=== PATIENT | female | born 1960 | race African-American/Black ===

== ENCOUNTER 2016-08-09 21:52 | Emergency (ER) | payer OTHER ==
[~2016-08-09] VITALS: Ht 165.1 cm; Wt 85.0 kg
[~2016-08-09 21:52] MED LIST: AZIT250T3 PO; CYCL-36 PO
[2016-08-09 21:54] VITALS: BP 160/88; PULSE 80; RESP 14; TEMP 97.8; O2SAT 100
[2016-08-09 22:57] VITALS: BP 178/103; PULSE 84; RESP 16; O2SAT 100
[2016-08-09] MEDS ORDERED: SODIUM CHLORID 0.9% 500 ML INJ 500 ML IV ONE (23:30)
[2016-08-09] MEDS ORDERED: DEXAMETHASONE SOD PHOS 4 MG/ML VIAL IV PUSH ONE (23:30)
[2016-08-09] MEDS ORDERED: ASPIRIN 81 MG CHEW TAB PO ONE (23:30)
[2016-08-09] MEDS ORDERED: SODIUM CHLORIDE 0.9% FLUSH 5 ML FLUSH IVF PRN (23:30)
--- NOTE | 2016-08-09 23:32 | PD ---
HPI Chief Complaint: Numbness/Tingling Time Seen by Provider: 22:47 Travel History International Travel<30 days: No Contact w/Intl Traveler<30days: No Traveled to known affect area: No History of Present Illness HPI The patient is a 55-year-old Amisha female who presents to the emergency department for left arm and hand tingling. The patient states she developed tingling and numbness to the fourth and fifth digit of the left hand on Friday. The patient states that initially it felt numb, she now has tingling without any actual pain. She also notes numbness to the volar aspect of the left hand on the ulnar aspect. The patient then developed chest pain last night which was substernal, sharp, and intermittent. She denies any shortness of breath, nausea, or vomiting with her chest pain. The patient denies any injury to the left upper extremity. The patient does have a history of diabetes, hypertension, and hyperlipidemia, but is been noncompliant on her medications. The patient did have a stress test 2015, nuclear medicine myocardial perfusion scan, that was unremarkable. The patient is right-hand dominant. PFSH Past Medical History Arthritis: No Asthma: No Autoimmune Disease: No Blood Disorders: No Anxiety: No Depression: No Heart Rhythm Problems: No Cancer: No Cardiac Catheterization: No Cardiovascular Problems: Yes (Chest Pain) High Cholesterol: Yes Chemotherapy: No Chest Pain: Yes Congestive Heart Failure: No COPD: No Cerebrovascular Accident: No Diabetes: Yes Patient Takes Glucophage: Yes Diminished Hearing: No Gastrointestinal Disorders: No GERD: No Glaucoma: No Headaches: No Hepatitis: No Hiatal Hernia: No Hypertension: No Kidney Stones: No Musculoskeletal: Yes (R KNEE ARTHRITIS) Neurologic: No Psychiatric: No Respiratory: No Immunizations Current: Yes Myocardial Infarction: No Radiation Therapy: No Renal Failure: No Seizures: No Sleep Apnea: No Thyroid Disease: No Ulcer: No Tetanus Vaccination: > 5 Years Influenza Vaccination: No PNEUMOCCOCAL Vaccine (Year): 2 ?: Not Menopausal: Yes : 4 Para: 4 Tubal Ligation: Yes (1999) Past Surgical History Abdominal Surgery: Yes AICD: No Cardiac Surgery: No Coronary Artery Bypass Graft: No Ear Surgery: No Endocrine Surgery: No Eye Surgery: No Genitourinary Surgery: No Gynecologic Surgery: Yes Hysterectomy: Yes (Partial MAY 2000) Oral Surgery: Yes Pacemaker: No Thoracic Surgery: No Other Surgery: Yes (BROKEN JAW REPAIRED 1982) Social History Alcohol Use: Yes (SOCIAL) Tobacco Use: No Substance Use: No Allergies-Medications (Allergen,Severity, Reaction): Coded Allergies: Percocet (Verified Allergy, Severe, N/V, 08/09/16) Reported Meds & Prescriptions Reported Meds & Active Scripts Active Reported Metformin (Metformin HCl) 500 Mg Tab 500 Mg PO BIDPC With meals Review of Systems Except as stated in HPI: all other systems reviewed are Neg HENT: No: Lightheadedness Cardiovascular: Positive: Chest Pain or Discomfort, No: Dyspnea on exertion Respiratory: No: Shortness of Breath Gastrointestinal: No: Nausea, Vomiting, Abdominal Pain Neurologic: Positive: Paresthesia, Sensory Disturbance Physical Exam Narrative GENERAL: Awake, alert, pleasant 55-year-old female who appears her stated age and is in no acute respiratory distress. SKIN: Warm and dry. HEAD: Atraumatic. Normocephalic. EYES: No injection or drainage. ENT: No nasal bleeding or discharge. Mucous membranes pink and moist. NECK: Trachea midline. No JVD. CARDIOVASCULAR: Regular rate and rhythm. No murmur appreciated. Palpation the chest wall does not reproduce symptoms. RESPIRATORY: No accessory muscle use. Clear to auscultation. Breath sounds equal bilaterally. GASTROINTESTINAL: Abdomen soft, non-tender, nondistended. No rebound tenderness.. MUSCULOSKELETAL: No obvious deformities. No clubbing. No cyanosis. No edema. Intrinsic hand muscles of the left hand are intact. Patient is able to abduct, adduct, flex, and extend all 5 digits. Patient is able to oppose the thumb to the fifth digit without difficulty. Positive left radial pulse. Patient is able fully flex and extend the left wrist as well as supinate and pronate the left forearm. The patient is able fully flex and extend the left elbow. NEUROLOGICAL: Awake and alert. No obvious cranial nerve deficits. Motor grossly within normal limits. Normal speech. Sensation was slightly diminished over the volar aspect of the fourth and fifth digit, normal on the radial aspect of the third digit. Slightly diminished over the volar aspect, ulnar aspect, the left hand. Normal over the mid to proximal left forearm. PSYCHIATRIC: Appropriate mood and affect; insight and judgment normal. Data Data Last Documented VS Vital Signs Date Time Temp Pulse Resp B/P Pulse Ox O2 Delivery O2 Flow Rate FiO2 08/10/16 04:45 73 18 139/70 98 08/10/16 03:29 Room Air 08/09/16 21:54 97.8 Orders Ckmb (Isoenzyme) Profile (08/09/16 23:18) Complete Blood Count With Diff (08/09/16 23:18) Comprehensive Metabolic Panel (08/09/16 23:18) Magnesium (Mg) (08/09/16 23:18) Troponin I (08/09/16 23:18) Ecg Monitoring (08/09/16 23:18) Iv Access Insert/Monitor (08/09/16 23:18) Oximetry (08/09/16 23:18) Oxygen Administration (08/09/16 23:18) Aspirin Chew (Aspirin Chew) (08/09/16 23:30) Sodium Chloride 0.9% Flush (Ns Flush) (08/09/16 23:30) Sodium Chlorid 0.9% 500 Ml Inj (Ns 500 M (08/09/16 23:30) Dexamethasone Inj (Decadron Inj) (08/09/16 23:30) Diphenhydramine Inj (Benadryl Inj) (08/10/16 00:00) Diphenhydramine Inj (Benadryl Inj) (08/10/16 00:01) Troponin I (08/10/16 02:44) CKMB (08/09/16 23:44) CKMB% (08/09/16 23:44) Electrocardiogram (08/09/16 22:53) Labs Laboratory Tests Test 08/09/16 08/10/16 23:44 03:25 White Blood Count 7.6 TH/MM3 Red Blood Count 4.56 MIL/MM3 Hemoglobin 13.7 GM/DL Hematocrit 41.0 % Mean Corpuscular Volume 90.0 FL Mean Corpuscular Hemoglobin 29.9 PG Mean Corpuscular Hemoglobin 33.3 % Concent Red Cell Distribution Width 13.3 % Platelet Count 249 TH/MM3 Mean Platelet Volume 10.5 FL Neutrophils (%) (Auto) 54.3 % Lymphocytes (%) (Auto) 34.1 % Monocytes (%) (Auto) 7.6 % Eosinophils (%) (Auto) 3.2 % Basophils (%) (Auto) 0.8 % Neutrophils # (Auto) 4.1 TH/MM3 Lymphocytes # (Auto) 2.6 TH/MM3 Monocytes # (Auto) 0.6 TH/MM3 Eosinophils # (Auto) 0.2 TH/MM3 Basophils # (Auto) 0.1 TH/MM3 CBC Comment DIFF FINAL Differential Comment Sodium Level 141 MEQ/L Potassium Level 3.6 MEQ/L Chloride Level 109 MEQ/L Carbon Dioxide Level 27.5 MEQ/L Anion Gap 5 MEQ/L Blood Urea Nitrogen 7 MG/DL Creatinine 0.76 MG/DL Estimat Glomerular Filtration 96 ML/MIN Rate Random Glucose 111 MG/DL Calcium Level 10.8 MG/DL Magnesium Level 2.4 MG/DL Total Bilirubin 0.5 MG/DL Aspartate Amino Transf 20 U/L (AST/SGOT) Alanine Aminotransferase 31 U/L (ALT/SGPT) Alkaline Phosphatase 138 U/L Total Creatine Kinase 229 U/L Creatine Kinase MB 1.3 NG/ML Creatine Kinase MB % 0.6 % Troponin I LESS THAN 0.02 LESS THAN 0.02 NG/ML NG/ML Total Protein 8.1 GM/DL Albumin 4.2 GM/DL MDM Medical Decision Making Medical Screen Exam Complete: Yes Emergency Medical Condition: Yes Medical Record Reviewed: Yes Interpretation(s) EKG reveals sinus rhythm with sinus arrhythmia. Inverted T waves noted in lead 1, 2, V3, V4, V5, V6. No significant changes since July 28, 2015. Differential Diagnosis Diagnosis includes acute coronary syndrome, ulnar radiculopathy, ulnar neuropathy, ulnar compartment syndrome, cervical radiculopathy, neuralgia. Narrative Course IV was established, labs are drawn and sent, and the patient was placed on cardiac telemetry monitoring and continuous pulse oximetry monitoring. EKG was ordered and interpreted. EKG does reveal inverted T waves in lead 1, 2, V3 through V6, however, there is no cystic changes when compared to previous EKG. The patient also had a normal nuclear medicine Robinson Lino perfusion scan performed on December 04, 2014. However, patient does have multiple risk factors and is not compliant, therefore, 2 sets of cardiac enzymes are ordered. Patient was administered aspirin and Decadron, I believe the patient has an ulnar neuropathy and may benefit from outpatient follow-up with neurology/ orthopedics. Therefore, the patient will have to sets of cardiac enzymes, negative, patient will be discharged home. The patient was signed out to Dr. Felton at 1 AM with second troponin pending. The patient received Decadron, immediately felt like there were ants biting her, therefore, was administered Benadryl 25 mg intravenously. Diagnosis Primary Impression: Ulnar neuropathy Qualified Code: G56.22 - Ulnar neuropathy of left upper extremity Additional Impression: Atypical chest pain Patient Instructions: General Instructions Condition: Stable David Coronado MD Aug 09, 2016 23:32
[2016-08-10] MEDS ORDERED: diphenhydrAMINE HCL 50 MG/ML VIAL IV PUSH ONE
[2016-08-10] MEDS ORDERED: diphenhydrAMINE HCL 50 MG/ML VIAL ONE (00:01)
[2016-08-10 00:18] LABS: AUTOMATED NEUTROPHIL # 4.1 TH/MM3 (1.8-7.7); BASOPHIL # 0.1 TH/MM3 (0-0.2); BASOPHIL % 0.8 % (0.0-2.0); EOSINOPHIL # 0.2 TH/MM3 (0-0.4); EOSINOPHIL % 3.2 % (0.0-4.0); HEMO FLAGS DIFF FINAL; LYMPH % 34.1 % (9.0-44.0); LYMPHOCYTE # 2.6 TH/MM3 (1.0-4.8); MEAN CORPUSCULAR HEMOGLOBIN 29.9 PG (27.0-34.0); MEAN CORPUSCULAR HGB CONC 33.3 % (32.0-36.0); MONO % 7.6 % (0.0-8.0); NEUT % 54.3 % (16.0-70.0); PLATELET COUNT 249 TH/MM3 (150-450); RED BLOOD COUNT 4.56 MIL/MM3 (4.00-5.30); RED CELL DISTRIBUTION WIDTH 13.3 % (11.6-17.2); WHITE BLOOD COUNT 7.6 TH/MM3 (4.0-11.0)
[2016-08-10 00:27] VITALS: BP 156/78; PULSE 84; RESP 16; O2SAT 98
[2016-08-10 00:41] LABS: ALKALINE PHOSPHATASE 138 U/L (45-117); ALT (GPT) 31 U/L (10-53); ANION GAP 5 MEQ/L (5-15); AST (GOT) 20 U/L (15-37); BICARBONATE 27.5 MEQ/L (21.0-32.0); BLOOD UREA NITROGEN 7 MG/DL (7-18); CHLORIDE 109 MEQ/L (98-107); CREATINE KINASE 229 U/L (26-192); GLOMERULAR FILTRATION RATE 96 ML/MIN (>89); MAGNESIUM 2.4 MG/DL (1.5-2.5); SODIUM (NA) 141 MEQ/L (136-145); TOTAL BILIRUBIN ADULT 0.5 MG/DL (0.2-1.0)
[2016-08-10 00:47] LABS: POTASSIUM 3.6 MEQ/L (3.5-5.1)
[2016-08-10] MEDS ORDERED: METF500T PO (00:48)
[2016-08-10 01:00] LABS: CKMB 1.3 NG/ML (0.5-3.6)
[2016-08-10 03:29] VITALS: BP 143/86; PULSE 62; RESP 18; O2SAT 96
--- NOTE | 2016-08-10 04:44 | PD ---
Physical Exam Date Seen by Provider: Aug 10, 2016 Narrative Care was assumed from Dr. Coronado at 0100 pending a second troponin. The patient presented with symptoms compatible with an ulnar radiculopathy. However , she has cardiac risk factors and did complain with an episode of chest pain. Data Data Last Documented VS Vital Signs Date Time Temp Pulse Resp B/P Pulse Ox O2 Delivery O2 Flow Rate FiO2 08/10/16 03:29 62 18 143/86 96 Room Air 08/09/16 21:54 97.8 Orders Ckmb (Isoenzyme) Profile (08/09/16 23:18) Complete Blood Count With Diff (08/09/16 23:18) Comprehensive Metabolic Panel (08/09/16 23:18) Magnesium (Mg) (08/09/16 23:18) Troponin I (08/09/16 23:18) Ecg Monitoring (08/09/16 23:18) Iv Access Insert/Monitor (08/09/16 23:18) Oximetry (08/09/16 23:18) Oxygen Administration (08/09/16 23:18) Aspirin Chew (Aspirin Chew) (08/09/16 23:30) Sodium Chloride 0.9% Flush (Ns Flush) (08/09/16 23:30) Sodium Chlorid 0.9% 500 Ml Inj (Ns 500 M (08/09/16 23:30) Dexamethasone Inj (Decadron Inj) (08/09/16 23:30) Diphenhydramine Inj (Benadryl Inj) (08/10/16 00:00) Diphenhydramine Inj (Benadryl Inj) (08/10/16 00:01) Troponin I (08/10/16 02:44) CKMB (08/09/16 23:44) CKMB% (08/09/16 23:44) Labs Laboratory Tests Test 08/09/16 08/10/16 23:44 03:25 White Blood Count 7.6 TH/MM3 Red Blood Count 4.56 MIL/MM3 Hemoglobin 13.7 GM/DL Hematocrit 41.0 % Mean Corpuscular Volume 90.0 FL Mean Corpuscular Hemoglobin 29.9 PG Mean Corpuscular Hemoglobin 33.3 % Concent Red Cell Distribution Width 13.3 % Platelet Count 249 TH/MM3 Mean Platelet Volume 10.5 FL Neutrophils (%) (Auto) 54.3 % Lymphocytes (%) (Auto) 34.1 % Monocytes (%) (Auto) 7.6 % Eosinophils (%) (Auto) 3.2 % Basophils (%) (Auto) 0.8 % Neutrophils # (Auto) 4.1 TH/MM3 Lymphocytes # (Auto) 2.6 TH/MM3 Monocytes # (Auto) 0.6 TH/MM3 Eosinophils # (Auto) 0.2 TH/MM3 Basophils # (Auto) 0.1 TH/MM3 CBC Comment DIFF FINAL Differential Comment Sodium Level 141 MEQ/L Potassium Level 3.6 MEQ/L Chloride Level 109 MEQ/L Carbon Dioxide Level 27.5 MEQ/L Anion Gap 5 MEQ/L Blood Urea Nitrogen 7 MG/DL Creatinine 0.76 MG/DL Estimat Glomerular Filtration 96 ML/MIN Rate Random Glucose 111 MG/DL Calcium Level 10.8 MG/DL Magnesium Level 2.4 MG/DL Total Bilirubin 0.5 MG/DL Aspartate Amino Transf 20 U/L (AST/SGOT) Alanine Aminotransferase 31 U/L (ALT/SGPT) Alkaline Phosphatase 138 U/L Total Creatine Kinase 229 U/L Creatine Kinase MB 1.3 NG/ML Creatine Kinase MB % 0.6 % Troponin I LESS THAN 0.02 LESS THAN 0.02 NG/ML NG/ML Total Protein 8.1 GM/DL Albumin 4.2 GM/DL [facility] Supervised Visit with ARCELIA: No Narrative Course Laboratory Tests Test 08/09/16 08/10/16 23:44 03:25 White Blood Count 7.6 TH/MM3 Red Blood Count 4.56 MIL/MM3 Hemoglobin 13.7 GM/DL Hematocrit 41.0 % Mean Corpuscular Volume 90.0 FL Mean Corpuscular Hemoglobin 29.9 PG Mean Corpuscular Hemoglobin 33.3 % Concent Red Cell Distribution Width 13.3 % Platelet Count 249 TH/MM3 Mean Platelet Volume 10.5 FL Neutrophils (%) (Auto) 54.3 % Lymphocytes (%) (Auto) 34.1 % Monocytes (%) (Auto) 7.6 % Eosinophils (%) (Auto) 3.2 % Basophils (%) (Auto) 0.8 % Neutrophils # (Auto) 4.1 TH/MM3 Lymphocytes # (Auto) 2.6 TH/MM3 Monocytes # (Auto) 0.6 TH/MM3 Eosinophils # (Auto) 0.2 TH/MM3 Basophils # (Auto) 0.1 TH/MM3 CBC Comment DIFF FINAL Differential Comment Sodium Level 141 MEQ/L Potassium Level 3.6 MEQ/L Chloride Level 109 MEQ/L Carbon Dioxide Level 27.5 MEQ/L Anion Gap 5 MEQ/L Blood Urea Nitrogen 7 MG/DL Creatinine 0.76 MG/DL Estimat Glomerular Filtration 96 ML/MIN Rate Random Glucose 111 MG/DL Calcium Level 10.8 MG/DL Magnesium Level 2.4 MG/DL Total Bilirubin 0.5 MG/DL Aspartate Amino Transf 20 U/L (AST/SGOT) Alanine Aminotransferase 31 U/L (ALT/SGPT) Alkaline Phosphatase 138 U/L Total Creatine Kinase 229 U/L Creatine Kinase MB 1.3 NG/ML Creatine Kinase MB % 0.6 % Troponin I LESS THAN 0.02 LESS THAN 0.02 NG/ML NG/ML Total Protein 8.1 GM/DL Albumin 4.2 GM/DL The patient has been resting comfortably pending her second troponin. Diagnosis Primary Impression: Ulnar neuropathy Qualified Code: G56.22 - Ulnar neuropathy of left upper extremity Additional Impression: Atypical chest pain Patient Instructions: General Instructions Disposition: DISCHARGE HOME Condition: Stable Nena Felton MD Aug 10, 2016 04:44
[2016-08-10 04:45] VITALS: BP 139/70; PULSE 73; RESP 18; O2SAT 98
--- NOTE | 2016-08-10 17:03 | EKG ---
Date Performed: 08/09/2016 Time Performed: 22:53:46 PTAGE: 55 years EKG: SINUS ARRHYTHMIA DIFFUSE NONSPECIFIC T WAVE CHANGE Compared to prior tracing no significant change ABNORMAL ECG PREVIOUS TRACING : 03/15/2016 07.55 DOCTOR: Rios Sanchez Interpretating Date/Time 08/10/2016 17:01:55
== END 2016-08-10 05:40 | disposition home or self-care (01) ==
LOC: NEPA 21:52 → NEPC 08-10 05:40
DX: G56.22 Lesion of ulnar nerve, left upper limb (principal); R07.89 Other chest pain; R94.31 Abnormal electrocardiogram [ECG] [EKG]; I10 Essential (primary) hypertension; E11.9 Type 2 diabetes mellitus without complications; Z91.14 Patient's other noncompliance with medication regimen; Z79.84 Long term (current) use of oral hypoglycemic drugs
CPT/HCPCS: 80053; 82550; 82552; 83735; 84484; 85025; 93005; 96361; 96374; 96375; 99284; J1100; J1200; J7040

== ENCOUNTER 2016-09-23 05:14 | Emergency (ER) | payer OTHER ==
[~2016-09-23] VITALS: Ht 172.7 cm; Wt 85.0 kg
[~2016-09-23 05:14] MED LIST changes: -AZIT250T3 PO; -CYCL-36 PO; +METF500T PO
[2016-09-23 05:16] VITALS: BP 153/83; PULSE 72; RESP 16; TEMP 97.6; O2SAT 100
[2016-09-23] MEDS ORDERED: DICL75TA PO (05:34)
[2016-09-23] MEDS ORDERED: CYCL1TAB29 PO (05:34)
--- NOTE | 2016-09-23 05:37 | PD ---
HPI Chief Complaint: Back/ Neck Pain or Injury Time Seen by Provider: 05:34 Travel History International Travel<30 days: No Contact w/Intl Traveler<30days: No Traveled to known affect area: No History of Present Illness HPI 56-year-old black female presents emergency Department with a 2 day history of lower back pain. She does not recall any trauma or injury. She states the pain is moderate. Worse with bending and movement. Some relief with sitting still. She denies any fever chills. No nausea vomiting. No numbness, focal weakness. No dysuria or frequency. No vaginal discharge. Patient states that she's had a history of back pain years ago. 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 PFSH Past Medical History Arthritis: No Asthma: No Autoimmune Disease: No Blood Disorders: No Anxiety: No Depression: No Heart Rhythm Problems: No Cancer: No Cardiac Catheterization: No Cardiovascular Problems: Yes (Chest Pain) High Cholesterol: Yes Chemotherapy: No Chest Pain: Yes Congestive Heart Failure: No COPD: No Cerebrovascular Accident: No Diabetes: Yes Diminished Hearing: No Gastrointestinal Disorders: No GERD: No Glaucoma: No Headaches: No Hepatitis: No Hiatal Hernia: No Hypertension: No Kidney Stones: No Musculoskeletal: Yes (R KNEE ARTHRITIS) Neurologic: No Psychiatric: No Respiratory: No Immunizations Current: Yes Myocardial Infarction: No Radiation Therapy: No Renal Failure: No Seizures: No Sleep Apnea: No Thyroid Disease: No Ulcer: No PNEUMOCCOCAL Vaccine (Year): 2 Menopausal: Yes : 4 Para: 4 Tubal Ligation: Yes (1999) Past Surgical History Abdominal Surgery: Yes AICD: No Cardiac Surgery: No Coronary Artery Bypass Graft: No Ear Surgery: No Endocrine Surgery: No Eye Surgery: No Genitourinary Surgery: No Gynecologic Surgery: Yes Hysterectomy: Yes (Partial MAY 2000) Oral Surgery: Yes Pacemaker: No Thoracic Surgery: No Other Surgery: Yes (BROKEN JAW REPAIRED 1982) Social History Alcohol Use: Yes (SOCIAL) Tobacco Use: No Substance Use: No Allergies-Medications (Allergen,Severity, Reaction): Coded Allergies: Percocet (Verified Allergy, Severe, N/V, 09/23/16) Reported Meds & Prescriptions Reported Meds & Active Scripts Active Reported Metformin (Metformin HCl) 500 Mg Tab 500 Mg PO BIDPC With meals Review of Systems Except as stated in HPI: all other systems reviewed are Neg Physical Exam Narrative GENERAL: Well-developed, well-nourished in no acute distress. Nontoxic appearing. HEAD: Normocephalic, atraumatic. EYES: Pupils equal round and reactive. Extraocular motions intact. No scleral icterus. No injection or drainage. ENT: TMs clear without erythema. The external auditory canals clear. Nose: clear . Posterior pharynx is pink and moist. No tonsillar edema or exudate. Uvula midline. Airway patent. NECK: Trachea midline.Supple, nontender, moves head freely. No central bony tenderness or spasm. CARDIOVASCULAR: Regular rate and rhythm without murmurs, gallops, or rubs. RESPIRATORY: Clear to auscultation. Breath sounds equal bilaterally. No wheezes , rales, or rhonchi. GASTROINTESTINAL: Abdomen soft, non-tender, nondistended. No hepato-splenomegaly , or palpable masses. No guarding. EXTREMITIES: No clubbing, cyanosis, or edema. No joint tenderness, effusion, or edema noted. BACK: No central bony tenderness to palpation of dorsal lumbar spine. Without deformity or crepitance. No flank tenderness. Patient has lower paralumbar tenderness. She is able bend forward at 90. Able to heel and toe stand. No saddle anesthesia. She has good distal pulses. Deep tendon reflexes are 3+ bilaterally Data Data Last Documented VS Vital Signs Date Time Temp Pulse Resp B/P Pulse Ox O2 Delivery O2 Flow Rate FiO2 09/23/16 05:16 97.6 72 16 153/83 100 Orders Naproxen (Naprosyn) (09/23/16 05:45) Cyclobenzaprine (Flexeril) (09/23/16 05:45) MDM Medical Decision Making Medical Screen Exam Complete: Yes Emergency Medical Condition: Yes Medical Record Reviewed: Yes Differential Diagnosis MDM: High Differential diagnoses: AAA,Fracture, sprain, strain, HNP, nerve or vascular injury, epidural abscess, pilonidal cyst, pyelonephritis, UTI, nephrolithiasis, ureterolithiasis Narrative Course Patient is given naproxen 500 and Flexeril 10 by mouth. This is acute back pain Diagnosis Primary Impression: Acute back pain Qualified Code: M54.5 - Acute bilateral low back pain without sciatica Patient Instructions: General Instructions Departure Forms: Tests/Procedures, Work Release Special Instructions: No work 3 days. Additional Instructions: Rest. Ice for the next 3 days followed by heat . Flexeril and Voltaren. Follow-up with a primary care doctor in one week. Return to the ER for emergencies. Med/Other Pt SpecificInfo: Prescription(s) given Scripts Cyclobenzaprine (Flexeril)10 Mg Tab10 Mg PO TID #30 TAB Prov:Lin Mead MD 09/23/[address] 75 Mg Tabdr75 Mg PO BID #20 TAB Prov:Lin Mead MD 09/23/16 Disposition: 01 DISCHARGE HOME Condition: Stable Taiwo Norman Sep 23, 2016 05:37
[2016-09-23] MEDS ORDERED: CYCLOBENZAPRINE HCL 10 MG TAB PO ONE (05:45)
[2016-09-23] MEDS ORDERED: NAPROXEN 500 MG TAB PO ONE (05:45)
== END 2016-09-23 06:04 | disposition home or self-care (01) ==
LOC: NETRI 05:14
DX: M54.5 Low back pain (principal); E78.00 Pure hypercholesterolemia, unspecified; E11.9 Type 2 diabetes mellitus without complications
CPT/HCPCS: 99283

== ENCOUNTER 2017-01-05 04:06 | Emergency (ER) | payer OTHER ==
[~2017-01-05 04:06] MED LIST changes: +CYCL1TAB29 PO; +DICL75TA PO
[2017-01-05 04:09] VITALS: BP 157/90; PULSE 70; RESP 18; TEMP 97.8; O2SAT 98
[2017-01-05] MEDS ORDERED: SODIUM CHLOR 0.9% 1000 ML INJ 1,000 ML IV ONE (05:45)
[2017-01-05] MEDS ORDERED: ACETAMINOPHEN 325 MG TAB PO ONE (05:45)
--- NOTE | 2017-01-05 06:03 | PD ---
HPI Chief Complaint: General Weakness Time Seen by Provider: 05:32 Travel History International Travel<30 days: No Contact w/Intl Traveler<30days: No Traveled to known affect area: No History of Present Illness HPI So 56-year-old woman who presents to the emergency department complaining that she has been feeling dizzy and tired. Just with some headache. She pulled a double shift a couple days ago states she didn't really eat. She hasn't felt well since then. She has eye pain and burning. States symptoms been worsening since about 11 PM. Nothing more specific. History Past Medical History Narrative Medical Diabetes Hyperlipidemia Tetanus Vaccination: > 5 Years Influenza Vaccination: No PNEUMOCCOCAL Vaccine (Year): 2 Menopausal: Yes : 4 Para: 4 Social History Alcohol Use: Yes (occ) Tobacco Use: No Allergies-Medications (Allergen,Severity, Reaction): Coded Allergies: Percocet (Verified Allergy, Severe, N/V, 01/05/17) Reported Meds & Prescriptions Reported Meds & Active Scripts Active No Active Prescriptions or Reported Medications Review of Systems ROS Limitations: Clinical Condition Physical Exam Narrative GENERAL: Well-appearing 56 year-old woman, no acute distress. SKIN: Focused skin assessment warm/dry. HEAD: Atraumatic. Normocephalic. EYES: Pupils equal and round. No scleral icterus. No injection or drainage. ENT: No nasal bleeding or discharge. Mucous membranes pink and moist. NECK: Trachea midline. No JVD. CARDIOVASCULAR: Regular rate and rhythm. No murmur appreciated. RESPIRATORY: No accessory muscle use. Clear to auscultation. Breath sounds equal bilaterally. GASTROINTESTINAL: Abdomen soft, non-tender, nondistended. Hepatic and splenic margins not palpable. MUSCULOSKELETAL: No obvious deformities. No clubbing. No cyanosis. No edema. Data Data Last Documented VS Vital Signs Date Time Temp Pulse Resp B/P Pulse Ox O2 Delivery O2 Flow Rate FiO2 01/05/17 04:28 16 01/05/17 04:09 97.8 70 157/90 98 Room Air Orders Complete Blood Count With Diff (01/05/17 05:40) Basic Metabolic Panel (Bmp) (01/05/17 05:40) Iv Access Insert/Monitor (01/05/17 05:40) Sodium Chlor 0.9% 1000 Ml Inj (Ns 1000 M (01/05/17 05:45) Acetaminophen (Tylenol) (01/05/17 05:45) Troponin I (01/05/17 06:04) Labs Laboratory Tests Test 01/05/17 06:15 White Blood Count 5.0 TH/MM3 Red Blood Count 4.56 MIL/MM3 Hemoglobin 14.1 GM/DL Hematocrit 41.4 % Mean Corpuscular Volume 90.7 FL Mean Corpuscular Hemoglobin 30.8 PG Mean Corpuscular Hemoglobin 34.0 % Concent Red Cell Distribution Width 13.6 % Platelet Count 240 TH/MM3 Mean Platelet Volume 10.2 FL Neutrophils (%) (Auto) 54.7 % Lymphocytes (%) (Auto) 35.7 % Monocytes (%) (Auto) 6.0 % Eosinophils (%) (Auto) 3.0 % Basophils (%) (Auto) 0.6 % Neutrophils # (Auto) 2.8 TH/MM3 Lymphocytes # (Auto) 1.8 TH/MM3 Monocytes # (Auto) 0.3 TH/MM3 Eosinophils # (Auto) 0.2 TH/MM3 Basophils # (Auto) 0.0 TH/MM3 CBC Comment DIFF FINAL Differential Comment Sodium Level 143 MEQ/L Potassium Level 3.5 MEQ/L Chloride Level 107 MEQ/L Carbon Dioxide Level 26.3 MEQ/L Anion Gap 10 MEQ/L Blood Urea Nitrogen 8 MG/DL Creatinine 0.66 MG/DL Estimat Glomerular Filtration 113 ML/MIN Rate Random Glucose 130 MG/DL Calcium Level 10.5 MG/DL MDM Medical Decision Making Medical Screen Exam Complete: Yes Emergency Medical Condition: Yes Interpretation(s) My review of EKG: Normal sinus rhythm at a rate of 57, normal axis, normal intervals, some diffuse anterior lateral and inferior T-wave inversions. Compared to previous EKG from August 09 there is no significant change. LABS: CBC unremarkable. CMP unremarkable. Differential Diagnosis Weakness, exhaustion, dehydration, hyperglycemia, other Narrative Course Medical decision-making this a well 56 year-old woman presents ED not feeling well dehydrated with some headache and some eye burning. I don't think she has any acute pathology. We' ll check some screening labs, IV fluids, give her a day off from work. Diagnosis Primary Impression: Generalized weakness Patient Instructions: General Instructions Departure Forms: Tests/Procedures, Work Release Enter return to work date: Jan 06, 2017 Additional Instructions: Itching plenty of fluids stay well-hydrated. Follow-up with her primary doctor in the next 2-4 days. Med/Other Pt SpecificInfo: No Change to Meds Scripts No Active Prescriptions or Reported Meds Disposition: 01 DISCHARGE HOME Condition: Bimal Peres MD Jan 05, 2017 06:03
[2017-01-05 06:29] LABS: AUTOMATED NEUTROPHIL # 2.8 TH/MM3 (1.8-7.7); BASOPHIL % 0.6 % (0.0-2.0); EOSINOPHIL # 0.2 TH/MM3 (0-0.4); HEMATOCRIT 41.4 % (35.0-46.0); HEMO FLAGS DIFF FINAL; LYMPH % 35.7 % (9.0-44.0); LYMPHOCYTE # 1.8 TH/MM3 (1.0-4.8); MEAN CELL VOLUME 90.7 FL (80.0-100.0); MEAN CORPUSCULAR HEMOGLOBIN 30.8 PG (27.0-34.0); NEUT % 54.7 % (16.0-70.0); PLATELET COUNT 240 TH/MM3 (150-450); RED BLOOD COUNT 4.56 MIL/MM3 (4.00-5.30); RED CELL DISTRIBUTION WIDTH 13.6 % (11.6-17.2)
[2017-01-05 06:57] LABS: BICARBONATE 26.3 MEQ/L (21.0-32.0); POTASSIUM 3.5 MEQ/L (3.5-5.1)
--- NOTE | 2017-01-05 12:33 | EKG ---
Date Performed: 01/05/2017 Time Performed: 04:34:55 PTAGE: 56 years EKG: SINUS BRADYCARDIA MODERATE T-WAVE ABNORMALITY, CONSIDER ANTEROLATERAL ISCHEMIA MODERATE T-W AVE ABNORMALITY, CONSIDER INFERIOR ISCHEMIA Compared to prior tracing no significant change ABNORMAL ECG PREVIOUS TRACING : 08/09/2016 22.53 DOCTOR: Robert Almaraz Interpretating Date/Time 01/05/2017 12:32:21
== END 2017-01-05 08:10 | disposition home or self-care (01) ==
LOC: NEPC 04:06
DX: R53.1 Weakness (principal); R51 Headache; R42 Dizziness and giddiness; H57.10 Ocular pain, unspecified eye; R00.1 Bradycardia, unspecified; R94.31 Abnormal electrocardiogram [ECG] [EKG]; E11.9 Type 2 diabetes mellitus without complications; E78.5 Hyperlipidemia, unspecified
CPT/HCPCS: 80048; 84484; 85025; 93005; 96360; 99284; J7030

== ENCOUNTER 2017-05-24 03:12 | Emergency (ER) | payer OTHER ==
[~2017-05-24] VITALS: Ht 167.6 cm; Wt 87.6 kg
[2017-05-24 03:13] VITALS: BP 139/80; PULSE 67; RESP 16; TEMP 98.1; O2SAT 98
[2017-05-24 04:05] LABS: BACTERIA, URINE RARE /hpf; BLOOD, URINE NEG (NEG); COMMENT (UR) CULT NOT INDICATED; CULTURE IF INDICATED CULT NOT INDICATED; GLUCOSE,URINE NEG (NEG); KETONE, URINE NEG (NEG); MUCUS URINE FEW /lpf (OCC); NITRITE,URINE NEG (NEG); SQUAMOUS EPITHELIAL CELL URINE 1 /hpf (0-5); URINE COLOR YELLOW (YELLW/STRAW)
--- NOTE | 2017-05-24 04:09 | PD ---
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 She states that she typically uses PT liners. She states that she is not sexually active. She has had no vaginal discharge. She notes discomfort with urinating but appears a morning outside of her labia. She denies any fever or chills. She does note that she is a diabetic and has not been taking her metformin. She was told by her doctor that her sugar is borderline. PFSH Past Medical History Arthritis: No Asthma: No Autoimmune Disease: No Blood Disorders: No Anxiety: No Depression: No Heart Rhythm Problems: No Cancer: No Cardiac Catheterization: No Cardiovascular Problems: Yes (Chest Pain) High Cholesterol: Yes Chemotherapy: No Chest Pain: Yes Congestive Heart Failure: No COPD: No Cerebrovascular Accident: No Diabetes: Yes Patient Takes Glucophage: No Diminished Hearing: No Gastrointestinal Disorders: No GERD: No Glaucoma: No Headaches: No Hepatitis: No Hiatal Hernia: No Hypertension: No Kidney Stones: No Musculoskeletal: Yes (R KNEE ARTHRITIS) Neurologic: No Psychiatric: No Respiratory: No Immunizations Current: Yes Myocardial Infarction: No Radiation Therapy: No Renal Failure: No Seizures: No Sleep Apnea: No Thyroid Disease: No Ulcer: No Influenza Vaccination: No PNEUMOCCOCAL Vaccine (Year): 2 ?: Not Menopausal: Yes : 4 Para: 4 Tubal Ligation: Yes (1999) Past Surgical History Abdominal Surgery: Yes AICD: No Cardiac Surgery: No Coronary Artery Bypass Graft: No Ear Surgery: No Endocrine Surgery: No Eye Surgery: No Genitourinary Surgery: No Gynecologic Surgery: Yes Hysterectomy: Yes (partial 05/2000) Oral Surgery: Yes Pacemaker: No Thoracic Surgery: No Other Surgery: Yes (BROKEN JAW REPAIRED 1982) Social History Alcohol Use: Yes (SOCIAL) Tobacco Use: No Substance Use: No Allergies-Medications (Allergen,Severity, Reaction): Coded Allergies: acetaminophen (Unverified Allergy, Severe, N/V, 05/24/17) oxycodone (Unverified Allergy, Severe, N/V, 05/24/17) Reported Meds & Prescriptions Reported Meds & Active Scripts Active Macrobid (Nitrofurantoin Monoh/Nitrofur Macro) 100 Mg Cap 100 Mg PO BID 7 Days Review of Systems General / Constitutional: No: Fever Eyes: No: Visual changes HENT: No: Headaches Cardiovascular: No: Chest Pain or Discomfort Respiratory: No: Shortness of Breath Gastrointestinal: No: Abdominal Pain Genitourinary: Positive: Dysuria, No: Urgency, Frequency, Nocturia, Hematuria, Pelvic Pain, Discharge Musculoskeletal: No: Pain Skin: Positive Itching, No Rash Neurologic: No: Weakness Psychiatric: No: Depression Endocrine: No: Polydipsia Hematologic/Lymphatic: No: Easy Bruising Physical Exam Narrative GENERAL: This is a well-nourished, well-developed patient, in no apparent distress. The patient's examined with the nurse present. SKIN: No rashes, ecchymoses or lesions. Warm and dry. HEAD: Atraumatic. Normocephalic. EYES: PERRL, EOMI, no discharge or injection. No scleral icterus. EARS: Clear NOSE: Nasal turbinates appear normal. THROAT: Mucosa pink and moist. Airway patent. NECK: Trachea midline. supple, moves head freely. LUNGS: Clear to auscultation. CV: Regular in rhythm. ABDOMEN: Soft nontender. EXT: No clubbing cyanosis or edema. : The patient has mild irritation on the labia minora. There is no obvious rashes otherwise. No vesicles or blistering. No discharge. Data Data Last Documented VS Vital Signs Date Time Temp Pulse Resp B/P (MAP) Pulse Ox O2 Delivery O2 Flow Rate FiO2 05/24/17 03:13 98.1 67 16 139/80 (99) 98 Room Air Orders Orders Urinalysis - C+S If Indicated (05/24/17 03:39) Blood Glucose (05/24/17 03:53) Ed Discharge Order (05/24/17 04:10) Nitrofurantoin Monohyd Macrocr (Macrobid (05/24/17 04:15) Phenazopyridine (Pyridium) (05/24/17 04:15) Labs Laboratory Tests Test 05/24/17 03:47 Urine Color YELLOW Urine Turbidity CLEAR Urine pH 6.0 Urine Specific [place] 1.019 Urine Protein TRACE mg/dL Urine Glucose (UA) NEG mg/dL Urine Ketones NEG mg/dL Urine Occult Blood NEG Urine Nitrite NEG Urine Bilirubin NEG Urine Urobilinogen LESS THAN 2.0 MG/DL Urine Leukocyte Esterase MOD Urine RBC 1 /hpf Urine WBC 7 /hpf Urine Squamous Epithelial Cells 1 /hpf Urine Bacteria RARE /hpf Urine Mucus FEW /lpf Microscopic Urinalysis Comment CULT NOT INDICATED [facility] Medical Decision Making Medical Screen Exam Complete: Yes Emergency Medical Condition: Yes Medical Record Reviewed: Yes Interpretation(s) Laboratory Tests Test 05/24/17 03:47 Urine Color YELLOW Urine Turbidity CLEAR Urine pH 6.0 Urine Specific [place] 1.019 Urine Protein TRACE mg/dL Urine Glucose (UA) NEG mg/dL Urine Ketones NEG mg/dL Urine Occult Blood NEG Urine Nitrite NEG Urine Bilirubin NEG Urine Urobilinogen LESS THAN 2.0 MG/DL Urine Leukocyte Esterase MOD Urine RBC 1 /hpf Urine WBC 7 /hpf Urine Squamous Epithelial Cells 1 /hpf Urine Bacteria RARE /hpf Urine Mucus FEW /lpf Microscopic Urinalysis Comment CULT NOT INDICATED Accu-Chek 124. Differential Diagnosis Differential diagnoses: Hyperglycemia, UTI, vaginitis, STD Narrative Course Patient is Accu-Chek is 124. UA is positive for UTI. Patient given Macrobid 100 mg and Pyridium 200 mg by mouth. This is UTI Patient Instructions: General Instructions Additional Instructions: Rest. Increase fluids. Azo [id number]. Macrobid and VAGISILE Follow-up with your doctor in 1 week. Return to the ER for emergencies. Med/Other Pt SpecificInfo: Prescription(s) given Scripts Nitrofurantoin Monohydrate Macrocrystals (Macrobid) 100 Mg Cap 100 MG PO BID for Infection for 7 Days, #14 CAP 0 Refills Prov: Sharon Foss MD 05/24/17 Disposition: 01 DISCHARGE HOME Condition: Stable Taiwo Norman May 24, 2017 04:09
[2017-05-24] MEDS ORDERED: MACR100C2 PO (04:10)
[2017-05-24] MEDS ORDERED: [UNRECOGNIZED DRUG - CODE] VAGINAL (04:14)
[2017-05-24] MEDS ORDERED: PHENAZOPYRIDINE HCL 200 MG TAB PO ONE (04:15)
[2017-05-24] MEDS ORDERED: NITROFURANTOIN MONOHYD MACROCR 100 MG CAP PO ONE (04:15)
[2017-05-24 04:20] VITALS: BP 127/86; PULSE 60; RESP 16; O2SAT 98
== END 2017-05-24 04:43 | disposition home or self-care (01) ==
LOC: NEPD 03:12
DX: N39.0 Urinary tract infection, site not specified (principal); L29.8 Other pruritus; E11.9 Type 2 diabetes mellitus without complications; E78.00 Pure hypercholesterolemia, unspecified; Z79.84 Long term (current) use of oral hypoglycemic drugs; Z86.79 Personal history of other diseases of the circulatory system; Z87.39 Personal history of other diseases of the musculoskeletal system and connective tissue
CPT/HCPCS: 81001; 99285

== ENCOUNTER 2017-08-23 08:12 | Emergency (ER) | payer OTHER ==
[~2017-08-23] VITALS: Ht 167.6 cm; Wt 84.0 kg
[~2017-08-23 08:12] MED LIST changes: -CYCL1TAB29 PO; -DICL75TA PO; +MACR100C2 PO; -METF500T PO; +[UNRECOGNIZED DRUG - CODE] VAGINAL
[2017-08-23 08:16] VITALS: BP 132/73; PULSE 83; RESP 16; TEMP 98.7; O2SAT 97
--- NOTE | 2017-08-23 08:24 | PD ---
HPI Chief Complaint: Cold / Flu Symptoms Time Seen by Provider: 08:23 Travel History International Travel<30 days: No Contact w/Intl Traveler<30days: No Traveled to known affect area: No History of Present Illness HPI Patient complains of cough body ache chills that resolved over the past week or so. Patient thought that she was getting over her illness. And now over the last day or so she has started with continued cough, productive of yellow-green sputum, body aches again and a subjective fever at home. Patient denies any alleviating or aggravating factors. Patient denies any associated factors such as headache, chest pain, back pain, abdominal pain, nausea, vomiting, diarrhea, or rash Per chart review patient allergic to oxycodone and Tylenol Past medical history significant for hypercholesterolemia GERD diabetes Past surgical history significant for hysterectomy tubal ligation oral surgery and orthopedic surgery PFSH Past Medical History Arthritis: No Asthma: No Autoimmune Disease: No Blood Disorders: No Anxiety: No Depression: No Heart Rhythm Problems: No Cancer: No Cardiac Catheterization: No Cardiovascular Problems: Yes (Chest Pain) High Cholesterol: Yes Chemotherapy: No Chest Pain: Yes Congestive Heart Failure: No COPD: No Cerebrovascular Accident: No Diabetes: Yes Diminished Hearing: No Gastrointestinal Disorders: No GERD: No Glaucoma: No Headaches: No Hepatitis: No Hiatal Hernia: No Hypertension: No Kidney Stones: No Musculoskeletal: Yes (R KNEE ARTHRITIS) Neurologic: No Psychiatric: No Respiratory: No Immunizations Current: Yes Myocardial Infarction: No Radiation Therapy: No Renal Failure: No Seizures: No Sleep Apnea: No Thyroid Disease: No Ulcer: No PNEUMOCCOCAL Vaccine (Year): 2 Menopausal: Yes : 4 Para: 4 Tubal Ligation: Yes (1999) Past Surgical History Abdominal Surgery: Yes AICD: No Cardiac Surgery: No Coronary Artery Bypass Graft: No Ear Surgery: No Endocrine Surgery: No Eye Surgery: No Genitourinary Surgery: No Gynecologic Surgery: Yes Hysterectomy: Yes (partial 05/2000) Oral Surgery: Yes Pacemaker: No Thoracic Surgery: No Other Surgery: Yes (BROKEN JAW REPAIRED 1982) Social History Alcohol Use: Yes (SOCIAL) Tobacco Use: No Substance Use: No Allergies-Medications (Allergen,Severity, Reaction): Coded Allergies: acetaminophen (Unverified Allergy, Severe, N/V, 05/24/17) oxycodone (Unverified Allergy, Severe, N/V, 05/24/17) Reported Meds & Prescriptions Reported Meds & Active Scripts Active Proventil Hfa 6.7 GM Inh (Albuterol Sulfate) 90 Mcg/Act Aer 2 Puff INH Q4-6H PRN Guaifenesin AC Liq (Guaifenesin-Codeine Liq) 100-10 Mg/5 Ml Syrp 10 Ml PO Q6H PRN Zithromax Z-Malachi (Azithromycin) 250 Mg Dspk 250 Mg PO DIRECTED 500 MG (2 tabs) day 1, then 1 tab days 2-5. Review of Systems General / Constitutional: No: Fever Eyes: No: Visual changes HENT: Positive: Sore Throat Cardiovascular: No: Chest Pain or Discomfort Respiratory: Positive: Cough Gastrointestinal: No: Abdominal Pain Genitourinary: No: Dysuria Musculoskeletal: No: Pain Skin: No Rash Neurologic: No: Weakness Psychiatric: No: Depression Endocrine: No: Polydipsia Hematologic/Lymphatic: No: Easy Bruising Physical Exam Narrative GENERAL: SKIN: Warm and dry. HEAD: Atraumatic. Normocephalic. EYES: Pupils equal and round. No scleral icterus. No injection or drainage. ENT: No nasal bleeding or discharge. Mucous membranes pink and moist. Erythematous oropharynx but without any exudate. NECK: Trachea midline. No JVD. CARDIOVASCULAR: Regular rate and rhythm. RESPIRATORY: No accessory muscle use. Mild scattered wheezing noted. Breath sounds equal bilaterally. GASTROINTESTINAL: Abdomen soft, non-tender, nondistended. Hepatic and splenic margins not palpable. MUSCULOSKELETAL: Extremities without clubbing, cyanosis, or edema. No obvious deformities. NEUROLOGICAL: Awake and alert. No obvious cranial nerve deficits. Motor grossly within normal limits. Five out of 5 muscle strength in the arms and legs. Normal speech. PSYCHIATRIC: Appropriate mood and affect; insight and judgment normal. Data Data Last Documented VS Vital Signs Date Time Temp Pulse Resp B/P (MAP) Pulse Ox O2 Delivery O2 Flow Rate FiO2 08/23/17 08:29 20 97 Room Air 08/23/17 08:16 98.7 83 132/73 (92) Orders Orders Ed Discharge Order (08/23/17 08:38) MDM Medical Decision Making Medical Screen Exam Complete: Yes Emergency Medical Condition: Yes Medical Record Reviewed: Yes Interpretation(s) Pulse ox shows excellent Pleth wave, 97% on room air which is in normal limits Differential Diagnosis Pneumonia versus bronchitis versus pleurisy versus pharyngitis Narrative Course Patient noted that based on her history she probably had a viral illness preceding this, and now she is having recurrence of some symptoms that this is most likely a bacterial source of an opportunistic infection. Diagnosis Primary Impression: Acute bronchitis Qualified Codes: J20.9 - Acute bronchitis, unspecified Patient Instructions: Acute Bronchitis (ED), General Instructions Scripts Albuterol 6.7 GM Inh (Proventil Hfa 6.7 GM Inh) 90 Mcg/Act Aer 2 PUFF INH Q4-6H Y for SHORTNESS OF BREATH, #1 INHALER 0 Refills Prov: Mario Bass MD 08/23/17 Guaifenesin-Codeine Liq (Guaifenesin AC Liq) 100-10 Mg/5 Ml Syrp 10 ML PO Q6H Y for COUGH, #160 BOTTLE 0 Refills Prov: Mario Bass MD 08/23/17 Azithromycin (Zithromax Z-Malachi) 250 Mg Dspk 250 MG PO DIRECTED for Infection, #1 DSPK 0 Refills 500 MG (2 tabs) day 1, then 1 tab days 2-5. Prov: Mario Bass MD 08/23/17 Disposition: 01 DISCHARGE HOME Condition: Stable Mario Bass MD Aug 23, 2017 08:24
[2017-08-23] MEDS ORDERED: GUAISYP4 PO (08:37)
[2017-08-23] MEDS ORDERED: ALBU6.7H INH (08:37)
[2017-08-23] MEDS ORDERED: ZITHTAB PO (08:37)
== END 2017-08-23 09:18 | disposition home or self-care (01) ==
LOC: NEPC 08:12
DX: J20.9 Acute bronchitis, unspecified (principal); E78.00 Pure hypercholesterolemia, unspecified; E11.9 Type 2 diabetes mellitus without complications; M17.11 Unilateral primary osteoarthritis, right knee; Z88.6 Allergy status to analgesic agent; Z88.5 Allergy status to narcotic agent; Z79.899 Other long term (current) drug therapy
CPT/HCPCS: 99283

== ENCOUNTER 2017-10-20 14:08 | Emergency (ER) | payer SELFPAY ==
[~2017-10-20] VITALS: Ht 166.4 cm; Wt 81.8 kg
[~2017-10-20 14:08] MED LIST changes: +ALBU6.7H INH; +GUAISYP4 PO; -MACR100C2 PO; +ZITHTAB PO; -[UNRECOGNIZED DRUG - CODE] VAGINAL
[2017-10-20 14:28] VITALS: BP 162/101; PULSE 77; RESP 22; TEMP 97.5; O2SAT 100
[2017-10-20] MEDS ORDERED: METF500T PO ×2 (16:09→18:05)
--- NOTE | 2017-10-20 16:10 | PD ---
HPI Chief Complaint: Flank/Kidney Pain Time Seen by Provider: 16:09 Travel History International Travel<30 days: No Contact w/Intl Traveler<30days: No Traveled to known affect area: No History of Present Illness HPI 57-year-old female came to the emergency room with history of sudden onset severe right flank pain that started at 1030 this morning. Patient says that the pain comes in waves. It radiates down her right lower quadrant and is severe. She appears to be in distress. She has been nauseous but has not vomited. No aggravating or relieving factors identified. No hematuria. No fever or chills. She has never had this kind of pain before. No history of kidney stones. Patient had a partial hysterectomy many years ago due to uterine fibroids. Vital signs otherwise stable. Patient took 2 Excedrin migraines for the pain but it did nothing to her pain. [facility] Past Medical History Narrative Medical List of her past medical, surgical, social and family history is reviewed from the nursing note. Arthritis: No Asthma: No Autoimmune Disease: No Blood Disorders: No Anxiety: No Depression: No Heart Rhythm Problems: No Cancer: No Cardiac Catheterization: No Cardiovascular Problems: Yes (Chest Pain) High Cholesterol: Yes Chemotherapy: No Chest Pain: Yes Congestive Heart Failure: No COPD: No Cerebrovascular Accident: No Diabetes: Yes Diminished Hearing: No Gastrointestinal Disorders: No GERD: No Glaucoma: No Headaches: No Hepatitis: No Hiatal Hernia: No Heparin Induced Thrombocytopen: No Hypertension: No Kidney Stones: No Musculoskeletal: Yes (R KNEE ARTHRITIS) Neurologic: No Psychiatric: No Respiratory: No Immunizations Current: Yes Myocardial Infarction: No Radiation Therapy: No Renal Failure: No Seizures: No Sleep Apnea: No Thyroid Disease: No Ulcer: No PNEUMOCCOCAL Vaccine (Year): 2 Menopausal: Yes : 4 Para: 4 Tubal Ligation: Yes (1999) Past Surgical History Abdominal Surgery: Yes AICD: No Cardiac Surgery: No Coronary Artery Bypass Graft: No Ear Surgery: No Endocrine Surgery: No Eye Surgery: No Genitourinary Surgery: No Gynecologic Surgery: Yes Hysterectomy: Yes (partial 05/2000) Insulin Pump: No Oral Surgery: Yes Pacemaker: No Thoracic Surgery: No Other Surgery: Yes (BROKEN JAW REPAIRED 1982) Social History Alcohol Use: Yes (SOCIAL) Tobacco Use: No Substance Use: No Allergies-Medications (Allergen,Severity, Reaction): Coded Allergies: acetaminophen (Unverified Allergy, Severe, N/V, 10/20/17) oxycodone (Unverified Allergy, Severe, N/V, 10/20/17) Comments List of her allergies reviewed from the nursing note. Reported Meds & Prescriptions Reported Meds & Active Scripts Active Ibuprofen 600 Mg Tab 600 Mg PO Q6H PRN 5 Days Zofran Odt (Ondansetron Odt) 4 Mg Tab 4 Mg SL Q8HR PRN Hydrocodone-Acetaminophen 5-325 mg Tab 1 Tab PO Q6H PRN Metformin (Metformin HCl) 500 Mg Tab 500 Mg PO BIDPC Flomax (Tamsulosin HCl) 0.4 Mg Cap 0.4 Mg PO HS Proventil Hfa 6.7 GM Inh (Albuterol Sulfate) 90 Mcg/Act Aer 2 Puff INH Q4-6H PRN Reported Metformin (Metformin HCl) 500 Mg Tab 500 Mg PO BIDPC Narrative Medication List of her home medications reviewed from the nursing note Review of Systems Except as stated in HPI: all other systems reviewed are Neg Genitourinary: Positive: Flank Pain Physical Exam Narrative GENERAL: Awake, alert, moderate to significant distress, obese SKIN: Focused skin assessment warm/dry. HEAD: Atraumatic. Normocephalic. EYES: Pupils equal and round. No scleral icterus. No injection or drainage. ENT: No nasal bleeding or discharge. Mucous membranes pink and moist. NECK: Trachea midline. No JVD. CARDIOVASCULAR: Regular rate and rhythm. No murmur appreciated. RESPIRATORY: No accessory muscle use. Clear to auscultation. Breath sounds equal bilaterally. GASTROINTESTINAL: Abdomen soft, non-tender, nondistended. Hepatic and splenic margins not palpable. MUSCULOSKELETAL: No obvious deformities. No clubbing. No cyanosis. No edema. NEUROLOGICAL: Awake and alert. No obvious cranial nerve deficits. Motor grossly within normal limits. Normal speech. PSYCHIATRIC: Appropriate mood and affect; insight and judgment normal. Data Data Last Documented VS Orders Orders Complete Blood Count With Diff (10/20/17 14:32) Comprehensive Metabolic Panel (10/20/17 14:32) Lipase (10/20/17 14:32) Urinalysis - C+S If Indicated (10/20/17 14:32) Morphine Inj (Morphine Inj) (10/20/17 16:30) Sodium Chlor 0.9% 1000 Ml Inj (Ns 1000 M (10/20/17 16:30) Ketorolac Inj (Toradol Inj) (10/20/17 16:30) Ct Abd/Pel W/O Iv Contrast (10/20/17 ) Tamsulosin (Flomax) (10/20/17 18:00) Ed Discharge Order (10/20/17 18:06) Labs Laboratory Tests Test 10/20/17 16:20 10/20/17 16:25 White Blood Count 11.5 TH/MM3 Red Blood Count 4.36 MIL/MM3 Hemoglobin 13.2 GM/DL Hematocrit 39.8 % Mean Corpuscular Volume 91.3 FL Mean Corpuscular Hemoglobin 30.2 PG Mean Corpuscular Hemoglobin Concent 33.0 % Red Cell Distribution Width 13.5 % Platelet Count 224 TH/MM3 Mean Platelet Volume 10.0 FL Neutrophils (%) (Auto) 75.6 % Lymphocytes (%) (Auto) 16.0 % Monocytes (%) (Auto) 6.5 % Eosinophils (%) (Auto) 1.5 % Basophils (%) (Auto) 0.4 % Neutrophils # (Auto) 8.7 TH/MM3 Lymphocytes # (Auto) 1.8 TH/MM3 Monocytes # (Auto) 0.8 TH/MM3 Eosinophils # (Auto) 0.2 TH/MM3 Basophils # (Auto) 0.0 TH/MM3 CBC Comment DIFF FINAL Differential Comment Blood Urea Nitrogen 8 MG/DL Creatinine 0.99 MG/DL Random Glucose 171 MG/DL Total Protein 7.7 GM/DL Albumin 4.0 GM/DL Calcium Level 10.6 MG/DL Alkaline Phosphatase 146 U/L Aspartate Amino Transf (AST/SGOT) 20 U/L Alanine Aminotransferase (ALT/SGPT) 29 U/L Total Bilirubin 0.5 MG/DL Sodium Level 142 MEQ/L Potassium Level 3.4 MEQ/L Chloride Level 107 MEQ/L Carbon Dioxide Level 26.7 MEQ/L Anion Gap 8 MEQ/L Estimat Glomerular Filtration Rate 70 ML/MIN Lipase 61 U/L Urine Color LIGHT-YELLOW Urine Turbidity CLOUDY Urine pH 7.5 Urine Specific [place] 1.011 Urine Protein NEG mg/dL Urine Glucose (UA) NEG mg/dL Urine Ketones NEG mg/dL Urine Occult Blood TRACE Urine Nitrite NEG Urine Bilirubin NEG Urine Urobilinogen LESS THAN 2.0 MG/DL Urine Leukocyte Esterase NEG Urine RBC 5 /hpf Urine WBC 1 /hpf Urine Squamous Epithelial Cells 1 /hpf Urine Amorphous Sediment OCC Microscopic Urinalysis Comment CULT NOT INDICATED MDM Medical Decision Making Medical Screen Exam Complete: Yes Emergency Medical Condition: Yes Medical Record Reviewed: Yes Differential Diagnosis Ureteral colic, pyelonephritis, musculoskeletal Narrative Course 4:50 PM patient has been medicated for pain. Awaiting for blood test result on the CAT scan to be done and resulted. Case will be signed over to the oncoming ER physician. Procedures EKG Prior to Arrival: No Scripts Ibuprofen (Ibuprofen) 600 Mg Tab 600 MG PO Q6H Y for PAIN for 5 Days, #20 TAB 0 Refills Prov: Richard Guevara MD 10/20/17 Ondansetron Odt (Zofran Odt) 4 Mg Tab 4 MG SL Q8HR Y for Nausea/Vomiting, #20 TAB 0 Refills Prov: Richard Guevara MD 10/20/17 Hydrocodone-Acetaminophen (Hydrocodone-Acetaminophen) 5-325 mg Tab 1 TAB PO Q6H Y for PAIN, #12 TAB 0 Refills Prov: Richard Guevara MD 10/20/17 Metformin (Metformin) 500 Mg Tab 500 MG PO BIDPC for Blood Sugar Management, #60 TAB 0 Refills Prov: Richard Guevara MD 10/20/17 Tamsulosin (Flomax) 0.4 Mg Cap 0.4 MG PO HS for Manage Prostate Problems, #10 CAP 0 Refills Prov: Richard Guevara MD 10/20/17 Jerome Yoder MD Oct 20, 2017 16:10
[2017-10-20 16:26] VITALS: BP 161/85
[2017-10-20] MEDS ORDERED: MORPHINE SULFATE 8 MG/ML INJ IV PUSH ONE (16:30)
[2017-10-20] MEDS ORDERED: KETOROLAC TROMETHAMINE 30 MG/ML (IVP) VIAL IV PUSH ONE (16:30)
[2017-10-20] MEDS ORDERED: SODIUM CHLOR 0.9% 1000 ML INJ 1,000 ML IV ONE (16:30)
[2017-10-20 16:39] VITALS: BP 167/106; PULSE 84; RESP 16; O2SAT 100
[2017-10-20 16:54] LABS: AUTOMATED NEUTROPHIL # 8.7 TH/MM3 (1.8-7.7); BASOPHIL % 0.4 % (0.0-2.0); EOSINOPHIL # 0.2 TH/MM3 (0-0.4); EOSINOPHIL % 1.5 % (0.0-4.0); HEMATOCRIT 39.8 % (35.0-46.0); HEMOGLOBIN 13.2 GM/DL (11.6-15.3); LYMPHOCYTE # 1.8 TH/MM3 (1.0-4.8); MEAN CELL VOLUME 91.3 FL (80.0-100.0); MEAN CORPUSCULAR HEMOGLOBIN 30.2 PG (27.0-34.0); MONO % 6.5 % (0.0-8.0); MONOCYTE # 0.8 TH/MM3 (0-0.9); NEUT % 75.6 % (16.0-70.0); PLATELET COUNT 224 TH/MM3 (150-450); RED BLOOD COUNT 4.36 MIL/MM3 (4.00-5.30); RED CELL DISTRIBUTION WIDTH 13.5 % (11.6-17.2); WHITE BLOOD COUNT 11.5 TH/MM3 (4.0-11.0)
[2017-10-20 16:59] LABS: AMORPHOUS SEDIMENT, URINE OCC; BILIRUBIN, URINE NEG (NEG); BLOOD, URINE TRACE (NEG); GLUCOSE,URINE NEG (NEG); KETONE, URINE NEG (NEG); NITRITE,URINE NEG (NEG); PH, URINE 7.5 (5.0-8.5); SQUAMOUS EPITHELIAL CELL URINE 1 /hpf (0-5); URINE COLOR LIGHT-YELLOW (YELLW/STRAW); URINE LEUKOCYTE ESTERASE NEG (NEG)
[2017-10-20 17:21] LABS: AST (GOT) 20 U/L (15-37); BICARBONATE 26.7 MEQ/L (21.0-32.0); BLOOD UREA NITROGEN 8 MG/DL (7-18); CALCIUM 10.6 MG/DL (8.5-10.1); CHLORIDE 107 MEQ/L (98-107); CREATININE 0.99 MG/DL (0.50-1.00); GLOMERULAR FILTRATION RATE 70 ML/MIN (>89); GLUCOSE,RANDOM 171 MG/DL (74-106); SODIUM (NA) 142 MEQ/L (136-145)
[2017-10-20 17:25] LABS: ALKALINE PHOSPHATASE 146 U/L (45-117); ALT (GPT) 29 U/L (10-53); TOTAL BILIRUBIN ADULT 0.5 MG/DL (0.2-1.0); TOTAL PROTEIN 7.7 GM/DL (6.4-8.2)
--- NOTE | 2017-10-20 17:48 | RADRPT ---
EXAM DATE/TIME: 10/20/2017 17:10 [facility] COMPARISON: No previous studies available for comparison. INDICATIONS : Right flank and abdomen pain. ORAL CONTRAST: No oral contrast ingested. RADIATION DOSE: 16.13 CTDIvol (mGy) MEDICAL HISTORY : Diabetes mellitus type 2. Gastritis SURGICAL HISTORY : Tubal ligation. Hysterectomy. ENCOUNTER: Initial ACUITY: 1 day PAIN SCALE: 9/10 LOCATION: Right flank TECHNIQUE: Volumetric scanning of the abdomen and pelvis was performed. Using automated exposure control and ad justment of the mA and/or kV according to patient size, radiation dose was kept as low as reasonably achievable to obtain optimal diagnostic quality images. DICOM format image data is available electro nically for review and comparison. FINDINGS: LOWER LUNGS: There is dependent atelectasis in the lung bases. LIVER: Liver density indicates mild steatosis. No focal lesion is seen on this noncontrast examination. The re is no dilation of the biliary tree. No calcified gallstones. SPLEEN: Normal size without lesion. PANCREAS: Within normal limits. KIDNEYS: Right kidney is mildly enlarged with perinephric inflammation and stranding. There is mild asymmetric distention of the right ureter with a 2 mm stone at the right ureterovesical junction. There are 2 n onobstructing stones in the left kidney measuring 2 mm in the left mid kidney and 3 mm in the left lo wer pole. ADRENAL GLANDS: Within normal limits. VASCULAR: There is no aortic aneurysm. There is mild atherosclerotic disease. BOWEL/MESENTERY: The stomach, small bowel, and colon demonstrate no acute abnormality. There is no free intraperitone al air. There is trace free fluid in the pelvis. ABDOMINAL WALL: Within normal limits. RETROPERITONEUM: There is no lymphadenopathy. BLADDER: No wall thickening or mass. REPRODUCTIVE: The uterus is absent. INGUINAL: There is no lymphadenopathy or hernia. MUSCULOSKELETAL: There are mild degenerative changes of the lumbar spine. CONCLUSION: 1. There is a 2 mm stone at the right ureterovesical junction causing mild right hydroureter and righ t perinephric inflammation. 2. There are 2 nonobstructing left renal stones measuring up to 3 mm. Minh Louis MD on October 20, 2017 at 17:38 Board Certified Radiologist. This report was verified electronically.
[2017-10-20] MEDS ORDERED: TAMSULOSIN HCL 0.4 MG CAP PO ONE (18:00)
[2017-10-20] MEDS ORDERED: HYDR-3516 PO (18:05)
[2017-10-20] MEDS ORDERED: ZOFR4TAB3 SL (18:05)
[2017-10-20] MEDS ORDERED: IBUP-232 PO (18:05)
[2017-10-20] MEDS ORDERED: TAMS5CAP PO (18:05)
--- NOTE | 2017-10-20 18:05 | PD ---
Data Data Last Documented VS Vital Signs Date Time Temp Pulse Resp B/P (MAP) Pulse Ox O2 Delivery O2 Flow Rate FiO2 10/20/17 16:39 84 16 167/106 (126) 100 Room Air 10/20/17 14:28 97.5 Orders Orders Complete Blood Count With Diff (10/20/17 14:32) Comprehensive Metabolic Panel (10/20/17 14:32) Lipase (10/20/17 14:32) Urinalysis - C+S If Indicated (10/20/17 14:32) Morphine Inj (Morphine Inj) (10/20/17 16:30) Sodium Chlor 0.9% 1000 Ml Inj (Ns 1000 M (10/20/17 16:30) Ketorolac Inj (Toradol Inj) (10/20/17 16:30) Ct Abd/Pel W/O Iv Contrast (10/20/17 ) Tamsulosin (Flomax) (10/20/17 18:00) Labs Laboratory Tests Test 10/20/17 16:20 10/20/17 16:25 White Blood Count 11.5 TH/MM3 Red Blood Count 4.36 MIL/MM3 Hemoglobin 13.2 GM/DL Hematocrit 39.8 % Mean Corpuscular Volume 91.3 FL Mean Corpuscular Hemoglobin 30.2 PG Mean Corpuscular Hemoglobin Concent 33.0 % Red Cell Distribution Width 13.5 % Platelet Count 224 TH/MM3 Mean Platelet Volume 10.0 FL Neutrophils (%) (Auto) 75.6 % Lymphocytes (%) (Auto) 16.0 % Monocytes (%) (Auto) 6.5 % Eosinophils (%) (Auto) 1.5 % Basophils (%) (Auto) 0.4 % Neutrophils # (Auto) 8.7 TH/MM3 Lymphocytes # (Auto) 1.8 TH/MM3 Monocytes # (Auto) 0.8 TH/MM3 Eosinophils # (Auto) 0.2 TH/MM3 Basophils # (Auto) 0.0 TH/MM3 CBC Comment DIFF FINAL Differential Comment Blood Urea Nitrogen 8 MG/DL Creatinine 0.99 MG/DL Random Glucose 171 MG/DL Total Protein 7.7 GM/DL Albumin 4.0 GM/DL Calcium Level 10.6 MG/DL Alkaline Phosphatase 146 U/L Aspartate Amino Transf (AST/SGOT) 20 U/L Alanine Aminotransferase (ALT/SGPT) 29 U/L Total Bilirubin 0.5 MG/DL Sodium Level 142 MEQ/L Potassium Level 3.4 MEQ/L Chloride Level 107 MEQ/L Carbon Dioxide Level 26.7 MEQ/L Anion Gap 8 MEQ/L Estimat Glomerular Filtration Rate 70 ML/MIN Lipase 61 U/L Urine Color LIGHT-YELLOW Urine Turbidity CLOUDY Urine pH 7.5 Urine Specific [place] 1.011 Urine Protein NEG mg/dL Urine Glucose (UA) NEG mg/dL Urine Ketones NEG mg/dL Urine Occult Blood TRACE Urine Nitrite NEG Urine Bilirubin NEG Urine Urobilinogen LESS THAN 2.0 MG/DL Urine Leukocyte Esterase NEG Urine RBC 5 /hpf Urine WBC 1 /hpf Urine Squamous Epithelial Cells 1 /hpf Urine Amorphous Sediment OCC Microscopic Urinalysis Comment CULT NOT INDICATED MDM Supervised Visit with ARCELIA: No Narrative Course Patient was initially evaluated by the previous provider and signed out to me the beginning of my shift pending labs, CT abdomen pelvis, and disposition. See her note for further details. Briefly this is a 57-year-old female with history of diabetes, hyperlipidemia, here for evaluation of severe right-sided flank pain. Patient was provided morphine and Toradol by the previous provider, and at time of my assessment she is resting comfortably and reports that her pain has significantly improved. CBC is essentially unremarkable. CMP is remarkable for random glucose 171, calcium 10.6 which she has had in the past, otherwise unremarkable. UA shows trace occult blood, 5 RBCs, not suggestive of UTI. CT abdomen pelvis: CONCLUSION: 1. There is a 2 mm stone at the right ureterovesical junction causing mild right hydroureter and right perinephric inflammation. 2. There are 2 nonobstructing left renal stones measuring up to 3 mm. Patient was made aware of all findings. Again she is resting comfortably. She will be started on Flomax. I will give her a prescription for hydrocodone, ibuprofen, and Zofran. She is also requesting a prescription for metformin as she has been out of this medication for quite some time. I will give her a two- week supply and advised that she follow-up with her primary care physician as soon as possible. I will give her the name of the urologist shampoo person with him to follow-up with this week. She was advised on when to return to the emergency department. She verbalizes understanding and agreement with plan. Diagnosis Primary Impression: Ureterolithiasis Additional Impressions: Hyperglycemia Hypercalcemia Referrals: Bruno Davis MD 3 days Urologist Primary Care Physician 3 days Additional Instruction: Follow-up with your primary care physician this week. Follow-up with urologist Dr. Davis or a urologist of your choice this week. Return to the emergency department for worsening symptoms or any other concerns. Scripts Ibuprofen (Ibuprofen) 600 Mg Tab 600 MG PO Q6H Y for PAIN for 5 Days, #20 TAB 0 Refills Prov: Richard Guevara MD 10/20/17 Ondansetron Odt (Zofran Odt) 4 Mg Tab 4 MG SL Q8HR Y for Nausea/Vomiting, #20 TAB 0 Refills Prov: Richard Guevara MD 10/20/17 Hydrocodone-Acetaminophen (Hydrocodone-Acetaminophen) 5-325 mg Tab 1 TAB PO Q6H Y for PAIN, #12 TAB 0 Refills Prov: Richard Guevara MD 10/20/17 Metformin (Metformin) 500 Mg Tab 500 MG PO BIDPC for Blood Sugar Management, #60 TAB 0 Refills Prov: Richard Guevara MD 10/20/17 Tamsulosin (Flomax) 0.4 Mg Cap 0.4 MG PO HS for Manage Prostate Problems, #10 CAP 0 Refills Prov: Richard Guevara MD 10/20/17 Disposition: 01 DISCHARGE HOME Condition: Stable Richard Guevara MD Oct 20, 2017 18:05
[2017-10-20 18:26] VITALS: BP 138/64; PULSE 60; RESP 14; O2SAT 100
== END 2017-10-20 18:56 | disposition home or self-care (01) ==
LOC: NEPD 14:08
DX: N20.2 Calculus of kidney with calculus of ureter (principal); E11.65 Type 2 diabetes mellitus with hyperglycemia; E83.52 Hypercalcemia; Z79.84 Long term (current) use of oral hypoglycemic drugs
CPT/HCPCS: 74176; 80053; 81001; 83690; 85025; 96361; 96374; 96375; 99284; J1885; J2270; J7030